=== PATIENT | male | born 1960 | race Caucasian/White ===

== ENCOUNTER 2016-11-01 22:11 | Inpatient (IN) | payer SELFPAY ==
[~2016-11-01] VITALS: Ht 180.3 cm; Wt 93.8 kg
[~2016-11-01 22:11] MED LIST: DEXAMETHASONE4 MG PO; DILANTIN100 MG PO
[2016-11-02] VITALS (7 sets, daily range): BP systolic 128–154; BP diastolic 79–96
[2016-11-02 21:58] LABS: MCH 31.4 PG (29.0-34.0); MCHC 35.7 G/DL (30.0-36.0); MCV 87.9 FL (86-99); MEAN PLAT.VOLUME 9.6 uM^3 (9.0-12.4); PLATELET COUNT 262 K/uL (156-360); RBC DIS.WIDTH-CV 11.9 % (11.8-14.6); RBC DIS.WIDTH-SD 38.5 % (39-53); RED BLOOD COUNT 4.78 M/uL (4.00-5.50); WHITE BLOOD COUNT 15.1 K/uL (4.1-10.2)
[2016-11-02 22:15] LABS: ANION GAP 12 MEQ/L (2-14); CHLORIDE 100 MEQ/L (99-109); GFR ESTIMATE (CALCULATED) > 59 mL/min/; GLUCOSE 199 mg/dL (70-99); MAGNESIUM 2.1 mg/dl (1.3-2.7); POTASSIUM 4.4 MEQ/L (3.7-5.4); SAMPLE HEMOLYSIS CHECK 0; SAMPLE ICTERIC CHECK 0; SAMPLE LIPEMIA CHECK 0; SODIUM 137 MEQ/L (136-147); UREA NITROGEN (BUN) 19 mg/dL (9-23)
[2016-11-02 22:18] LABS: TROP-I INTERPRETATION NEGATIVE; TROPONIN-I < 0.01 ng/mL (0.0-0.30)
[2016-11-02 23:16] LABS: METH RESISTANT S AUREUS PCR NEGATIVE (NEGATIVE)
[2016-11-02 23:17] LABS: PROBE CHECK PASS; SPECIMEN PROCESSING CONTROL PASS
[2016-11-03] VITALS (20 sets, daily range): BP systolic 113–142; BP diastolic 66–91
[2016-11-03 05:44] LABS: TROP-I INTERPRETATION POSITIVE; TROPONIN-I 6.14 ng/mL (0.0-0.30)
[2016-11-03 13:59] LABS: TROP-I INTERPRETATION POSITIVE
[2016-11-04] VITALS: BP 120/68
[2016-11-04 02:00] VITALS: BP 133/84
[2016-11-04 04:00] VITALS: BP 133/72
[2016-11-04 06:00] VITALS: BP 131/85
[2016-11-04 08:00] VITALS: BP 129/76
[2016-11-04 10:00] VITALS: BP 116/73
[2016-11-04] MEDS ORDERED: ASPIR-LOW81 MG PO ×2 (12:06→12:27)
[2016-11-04] MEDS ORDERED: DECADRON1 MG PO (12:06)
[2016-11-04] MEDS ORDERED: KEPPRA500 MG PO (12:06)
[2016-11-04] MEDS ORDERED: LOPRESSOR25 MG PO ×2 (12:06→12:27)
[2016-11-04] MEDS ORDERED: DECADRON2 MG PO (12:06)
[2016-11-04] MEDS ORDERED: DECADRON4 MG PO ×2 (12:06→12:27)
[2016-11-04] MEDS ORDERED: ATORVASTATIN CA80 MG PO ×2 (12:06→12:27)
== END 2016-11-04 14:25 | disposition home or self-care (01) | DRG 25 ==
LOC: ENRESERV 22:11 → 2SOUTH 11-02 08:43 → EDSTATUS 11-02 10:00 → RAD 11-02 10:00 → ENRESERV 11-02 15:15 → 4WEST 11-02 21:00
PROVIDERS: Emergency Medicine; Internal Medicine Cardiovascular Disease
PROC: 00B00ZZ Excision of Brain, Open Approach (ICD-10-PCS; principal; 2016-11-02)
DX: C71.2 Malignant neoplasm of temporal lobe (principal); G93.6 Cerebral edema; I21.19 ST elevation (STEMI) myocardial infarction involving other coronary artery of inferior wall; I47.2 Ventricular tachycardia; I44.0 Atrioventricular block, first degree; R73.9 Hyperglycemia, unspecified; R47.01 Aphasia; R48.8 Other symbolic dysfunctions; G47.33 Obstructive sleep apnea (adult) (pediatric); D72.829 Elevated white blood cell count, unspecified; Z66 Do not resuscitate
CPT/HCPCS: 70553; 77021; 80048; 83735; 84484; 85027; 87641; 88307; 88341 TC; 88342 TC; 93005; 94799; C1713; J1100; J1170; J1953; J2150; J2250; J3010; J3370; J3480; J7050; S0020; S0028